=== PATIENT | female | born 1965 | race Caucasian/White ===

== ENCOUNTER → 2017-08-15 15:21 | Outpatient (CLI) | payer BC, SELFPAY ==
--- NOTE | 2017-08-15 15:29 | XR_ITS ---
EXAM: XR thoracic spine 3V HISTORY: ITS.REASON: BACK PAIN COMPARISON: None FINDINGS: Normal alignment. No fracture or dislocation. No lytic or blastic change. Minimal endplate osteophytes are present with mild degenerative disc disease in the midthoracic spine IMPRESSION: Mild degenerative change, no acute finding
--- NOTE | 2017-08-15 15:29 | XR_ITS ---
EXAM: XR lumbar spine min 4V HISTORY: Low back pain ORDERING PHYSICIAN: Emily Garrett PATIENT AGE: 52 years COMPARISON: None FINDINGS: Normal alignment. No fracture or dislocation. No lytic or blastic change. Facet arthritic changes with hypertrophy is present at L4-5 and L5-S1 IMPRESSION: Facet arthritic change L4-5 and L5-S1
== END ==
PROVIDERS: PCP Family Medicine; Visit Provider Nurse Practitioner Family
DX: M54.5 Low back pain (principal); M54.6 Pain in thoracic spine
CPT/HCPCS: 72072; 72110

== ENCOUNTER → 2017-10-21 10:56 | Outpatient (CLI) | payer BC, SELFPAY ==
[2017-10-21 12:45] LABS: Alanine Aminotransferase 24 U/L (12-78); Albumin Level 3.6 gm/dL (3.4-5.0); Albumin/Globulin Ratio 1.1 (1.1-1.8); Alkaline Phosphatase 73 U/L (46-116); Anion Gap 12.5 mEq/L (5-15); Aspartate Amino Transferase 15 U/L (15-37); Bilirubin,Total 0.2 mg/dL (0.2-1.0); Blood Urea Nitrogen 8 mg/dL (7-18); Carbon Dioxide 28 mmol/L (21.0-32.0); Chloride 105 mmol/L (98-107); Chol/HDL Ratio 4.4 (1-3.5); Cholesterol 153 mg/dL (140-200); Creatinine,Serum 0.68 mg/dL (0.55-1.02); Estimated Glomerular Filt Rate 92 ml/min (>60); Free T4 (Free Thyroxine) 0.97 ng/dl (0.76-1.46); GFR (African American) 111 ML/MIN (>60); Globulin 3.4 gm/dl (1.3-3.2); Glucose 101 mg/dL (74-106); HDL Cholesterol 35 mg/dL (29-89); LDL Cholesterol 108 mg/dL (0-130); Potassium 4.5 mmoL/L (3.5-5.1); Sodium 141 mmol/L (136-145); Thyroid Stimulating Hormone 3.34 uIU/ml (0.358-3.740); Triglycerides 48 mg/dL (30-200); VLDL Cholesterol 10 mg/dL (0-40)
[2017-10-23 12:13] LABS: Prolactin 11.5 ng/mL (4.8-23.3)
[2017-10-23 15:22] LABS: Thyroid Peroxidase Antibodies 33 IU/mL (0-34)
[2017-10-24 06:03] LABS: Estradiol 73.4 pg/mL (.); FSH 6.7 mIU/mL (.); Insulin Level Total 10.3 uIU/mL (2.6-24.9); LH 5.2 mIU/mL (.); Triiodothyronine (T3) Free 2.6 pg/mL (2.0-4.4); Vitamin D 25 Hydroxy 22.1 ng/mL (30.0-100.0)
[2017-10-24 06:04] LABS: Vitamin B12 306 pg/mL (232-1245)
== END ==
PROVIDERS: PCP Family Medicine; Visit Provider Internal Medicine Endocrinology, Diabetes & Metabolism
DX: E03.8 Other specified hypothyroidism (principal); R53.83 Other fatigue; E53.8 Deficiency of other specified B group vitamins; E55.9 Vitamin D deficiency, unspecified; E34.9 Endocrine disorder, unspecified
CPT/HCPCS: 36415; 80053; 80061; 82607; 82652; 82670; 83001; 83002; 83525; 84146; 84436; 84439; 84443; 84481; 86376

== ENCOUNTER → 2018-12-11 13:09 | Outpatient (CLI) | payer BC, SELFPAY ==
--- NOTE | 2018-12-11 13:15 | US_ITS ---
US transvaginal HISTORY: ITS.REASON: US T/V- Pelvic Pain ORDERING PHYSICIAN: Ranjit Guerra MD PATIENT AGE: 53 years Comparison: None FINDINGS: The uterus is 7.5 x 3.3 x 4.4 cm. Combined intra-atrial thickness is 4 mm. Anterior left aspect of the fundus there is a 1 similar area of decreased echogenicity consistent with a fibroid. Posteriorly within the fundus there is an additional 1.27 m area of slight heterogeneous echogenicity consistent with a fibroid. There is a septated 4 x 2 cm cyst involving the right ovary. The left ovary has an unremarkable appearance. No cul-de-sac fluid is evident. There is bilateral ovarian blood flow. IMPRESSION: 1. There are 2 small uterine fibroids. Previously noted fibroid in the region of the cervix is not demonstrated on today's exam. The patient is returning on 12/25/2018 for evaluation of the cervical region. An addendum can be given at that time regarding the cervix. 2. Complex 4 x 2 cm right ovarian cyst with some internal septations. Suggest follow-up to confirm resolution
== END ==
PROVIDERS: PCP Family Medicine; Visit Provider Nurse Practitioner Obstetrics & Gynecology
DX: R10.2 Pelvic and perineal pain (principal)
CPT/HCPCS: 76830

== ENCOUNTER → 2019-01-02 14:51 | Outpatient (CLI) | payer BC, SELFPAY ==
[2019-01-02 15:23] LABS: Basophils % 0.5 % (0.1-2.0); Eosinophils # 0.2 K/mm3 (0.0-0.4); Eosinophils % 3.2 % (0.1-12.0); Hematocrit 45.3 % (37.0-47.0); Hemoglobin 14.6 g/dL (12.2-16.2); Lymphocytes % 18.4 % (10-50); Mean Corpuscular HGB Conc 32.2 g/dL (31.8-35.4); Mean Corpuscular Hemoglobin 28.1 pg (27.0-31.2); Mean Corpuscular Volume 87.3 fl (81-99); Mean Platelet Volume 7.4 fl (7.4-10.4); Monocytes # 0.3 K/mm3 (0.1-1.0); Monocytes % 5.8 % (1.7-9.3); Neutrophils % 72.1 % (37.0-80.0); Platelet Count 340 K/mm3 (142-424); Red Blood Count 5.18 M/mm3 (4.20-5.40); Red Cell Distribution Width 13.1 % (11.5-17.5); White Blood Count 5.6 K/mm3 (4.8-10.8)
[2019-01-02 15:29] LABS: Blood Urea Nitrogen 10 mg/dL (7-18); Carbon Dioxide 28 mmol/L (21.0-32.0); Chloride 105 mmol/L (98-107); Creatinine,Serum 0.77 mg/dL (0.55-1.02); Estimated Glomerular Filt Rate 79 ml/min (>60); GFR (African American) 96 ML/MIN (>60); Glucose 107 mg/dL (74-106); Sodium 140 mmol/L (136-145); Troponin I < 0.02 ng/ml (0.00-0.06)
[2019-01-02 17:08] LABS: Alanine Aminotransferase 27 U/L (12-78); Albumin Level 4.2 gm/dL (3.4-5.0); Alkaline Phosphatase 77 U/L (46-116); Aspartate Amino Transferase 16 U/L (15-37); Bilirubin,Direct 0.1 mg/dL (0.0-0.2); Bilirubin,Indirect 0.2 mg/dL (0.0-0.9); Bilirubin,Total 0.3 mg/dL (0.2-1.0); Thyroid Stimulating Hormone 2.83 uIU/ml (0.358-3.740); Total Protein,Serum 7.6 gm/dL (6.4-8.2)
== END ==
PROVIDERS: Visit Provider Nurse Practitioner Family
DX: I20.8 Other forms of angina pectoris (principal); E03.9 Hypothyroidism, unspecified; E78.49 Other hyperlipidemia; I10 Essential (primary) hypertension; I25.118 Atherosclerotic heart disease of native coronary artery with other forms of angina pectoris; R00.2 Palpitations
CPT/HCPCS: 36415; 80048; 80076; 84439; 84443; 84484; 85025

== ENCOUNTER → 2019-01-16 07:27 | Outpatient (CLI) | payer BC, SELFPAY ==
--- NOTE | 2019-01-16 07:31 | NM_ITS ---
CARDIOLITE SPECT MYOCARDIAL PERFUSION EXCERCISE, REST AND STRESS: History: Hypertension, family history, chest pain and shortness of breath Procedure: Patient exercised on Ramírez protocol 6 minutes and 11 seconds, resting heart rate was 78 bpm resting blood pressure 136/81, with exercise maximum heart rate achieved was 1 54 bpm which is greater than 85% of the maximum predicted heart rate and a blood pressure was 2/86. Test was started due to shortness of breath patient denied complained of chest pain. Patient has adequate exercise capacity achieved 7mets of workload on treadmill, the blood pressure response to exercise was adequate. Electrocardiogram: Single electrocardiogram showed sinus rhythm with exercise there is less than 1.[address] segment depression noted from the baseline EKG. The EKG portion of the exercise Myoview is negative for ischemia. Cardiac stress and resting SPECT images: Cardiac stress and resting SPECT images were obtained using technetium 99 Myoview 31.9 mCi stress and 9.7 mCi at rest. Gated SPECT further analysis of segmental wall motion and calculation of the ejection fraction also done. Cardiac stress images show uniform myocardial activity. Computer derived ejection fraction is over 65% with no regional wall motion abnormality. Right ventricle is normal size and contractility. Conclusion: 1. The EKG portion of the exercise Myoview is negative for ischemia, patient has adequate exercise capacity achieved 7mets of workload on treadmill, the blood pressure response to exercise was adequate, there was no exercise-induced chest discomfort. 2. No scintigraphic evidence of reversible ischemia seen, computer derived ejection fraction is over 65% with no regional wall motion abnormality, right ventricle is normal size and contractility. 3. Normal exercise Myoview study.
--- NOTE | 2019-01-16 07:33 | CA_ITS ---
PROCEDURE: 2-D M-mode and color Doppler study INDICATIONS FOR THE TEST: Chest pain X COPD Heart Murmur Tobacco SmokingEX PalpitationsX Fatigue SyncopeX Edema HypertensionXDiabetes Mellitus Rheumatic Fever SOBXDOEXObesity Hyperlipidemia Family History HD Additional History CAD PATIENT INFORMATION HEIGHT: 65 WEIGHT:176 GENDER: Female B/P:157/100 2-D/M-MODE INTERPRETATION: 2-D MEASUREMENTS OBSERVED VALUES IN CMS Right Ventricular Dimension (RVDd) 2.3 Interventricular Septum (Thickness)(IVsd) .9 Left Ventricular Internal Dimensions(LVIDd) 4.4 Left Ventricular Posterior Wall (Thickness)(LVPWd) .9 Aortic Root 2.7 Aortic Cusp Separation 1.5 Left Atrial Dimensions (LAD) 3.0 2D 1. Left atrium is normal size, left ventricle is normal size, there is mild qualitative concentric left ventricular hypertrophy, visually estimated ejection fraction 55% with no regional wall motion abnormality. 2. The right atrium and right ventricle are mildly enlarged with normal contractility. 3. The aortic valve is minimally thickened and fibrosed. 4. The mitral and tricuspid valve are grossly normal. 5. The pulmonic valve is poorly visualized. 6. No significant pericardial effusion noted. DOPPLER INTERROGATION: Doppler interrogation of the aortic, mitral and tricuspid valvular presence of mild mitral and tricuspid regurgitation, calculated right ventricular systolic pressure is 36 mmHg, grade 1 diastolic dysfunction seen without tissue Doppler evidence of raised left atrial pressure. CONCLUSION: 1. Mild biatrial enlargement, normal left ventricular size, mild qualitative concentric left ventricular hypertrophy, visually estimated ejection fraction 55% with no regional wall motion abnormality, grade 1 diastolic dysfunction seen without tissue Doppler evidence of raised left atrial pressure. 2. Mildly enlarged right ventricle with normal contractility. 3. Mild mitral and tricuspid regurgitation, calculated right ventricular systolic pressure is 36 mmHg. 4. No significant pericardial effusion noted.
--- NOTE | 2019-01-16 08:26 | HMH.ITSHM ---
Current Home Medications as stated by this patient Lacey Wick or sales account representative. []LEVOTHYROXINE METOPROLOL AMLODIPINE NORTRIPTYLINE OMEPRAZOLE ASA
== END ==
PROVIDERS: PCP Family Medicine; Visit Provider Nurse Practitioner Family
DX: R07.9 Chest pain, unspecified (principal); R00.2 Palpitations; I25.118 Atherosclerotic heart disease of native coronary artery with other forms of angina pectoris; E03.9 Hypothyroidism, unspecified; E78.49 Other hyperlipidemia; I10 Essential (primary) hypertension
CPT/HCPCS: 78452; 93017; 93306; A9502

== ENCOUNTER → 2019-01-29 13:56 | Outpatient (CLI) | payer BC, SELFPAY ==
--- NOTE | 2019-01-29 14:01 | MM_ITS ---
MM Dig screening mamm BI w/CAD CAD Screening COMPARISON: Digital mammograms with CAD 02/01/2017 and 04/02/2014 INDICATION: There is no personal or family history of breast cancer. There has been a previous biopsy on each breast for benign disease. TECHNIQUE: Standard CC and MLO images were obtained. R2 CAD reviewed. FINDINGS: Prominent somewhat heterogenic fibroglandular densities are seen in both breasts and the findings are bilateral and symmetrical. There is a biopsy clip upper central portion of each breast. There is no suspicious lesion and there are no suspicious microcalcifications. There is a mole marker right breast. IMPRESSION: Moderately dense parenchymal pattern with no suspicious lesion seen BI-RADS Category: 2 Benign Finding(s) RECOMMENDED FOLLOW-UP: 1YR - 1 YEAR FOLLOW-UP (A letter has been sent to the patient regarding results of the study.)
== END ==
PROVIDERS: PCP Family Medicine; Visit Provider Nurse Practitioner Obstetrics & Gynecology
DX: Z12.31 Encounter for screening mammogram for malignant neoplasm of breast (principal)
CPT/HCPCS: 77067

== ENCOUNTER → 2019-06-06 17:43 | Outpatient (CLI) | payer BC, SELFPAY ==
--- NOTE | 2019-06-06 17:46 | XR_ITS ---
PROCEDURE: XR MULTIPLE SPINE 6+V cervical thoracic and lumbar spine CLINICAL INDICATION: BACK AND NECK PAIN For several years COMPARISON: CS5 CERVICAL SPINE 4 OR 5 VIEWS from 02/01/2017 FINDINGS: There is straightening of the normal curvature similar to the previous study January 2017. A swimmer's view was obtained showing good visualization of the cervical thoracic junction. C1 through C7 appear intact. There is mild disc space narrowing at C4-5 C5-6 levels with mild anterior osteophytic spurring at these levels unchanged from the previous study oblique film show no significant neural foraminal compromise on either side. The prevertebral soft tissues are normal and the odontoid is normal. 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 The prevertebral soft tissues are normal and the joints normal. Thoracic spine: There is normal curvature and alignment. All thoracic vertebrae appear intact. Minor degenerate changes are seen lower thoracic spine. There is no paraspinal mass. Lumbar spine: There is normal curvature and alignment. There is a transitional vertebrae at the lumbosacral junction with unilateral pseudoarthrosis on the left side. All lumbar vertebrae appear intact and disc spaces are well maintained throughout. There are mild hypertrophic facet changes at the L4-5 and L5-S1 levels. There is no pars defect. There minor sclerosis of the SI joints bilaterally. IMPRESSION: Possible mild muscle spasm, stable minor degenerate disc disease C4-5 and C5-6. 1. Minor degenerative changes lower thoracic spine 2. 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 José Luis Mckeon MD 06/07/2019 07:[address] José Luis Mckeon MD in [place] 06/07/2019 07:38
== END ==
PROVIDERS: PCP Nurse Practitioner Family; Visit Provider Nurse Practitioner Family
DX: M54.2 Cervicalgia (principal); M54.9 Dorsalgia, unspecified
CPT/HCPCS: 72084

== ENCOUNTER → 2019-08-09 14:14 | Outpatient (CLI) | payer BC, SELFPAY ==
--- NOTE | 2019-08-09 14:19 | MR_ITS ---
PROCEDURE: MR LUMBAR SPINE WO CON CLINICAL INDICATION: LOW BACK PAIN Low back pain, bilateral leg weakness and pain COMPARISON: [id number] XR lumbar spine min 4V from 08/15/2017 [id number] XR thoracic spine 3V from 08/15/2017 TECHNIQUE: Standard multiplanar multiecho sequences are performed without contrast. 3-D MIP and myelographic images are also rendered and reviewed FINDINGS: There is normal alignment. The spinal cord ends at the L1-L2 level. L1-L2: Unremarkable. L2-L3: Unremarkable. L3-L4: Unremarkable. L4-5: There is mild bulging disc at L4 at L5 with mild facet and ligamentum hypertrophy. L5-S1: Mild degenerative disc disease. There is a transitional segment at L5-S1 which is labeled as L5. Review of previous lumbar spine radiograph shows hypoplastic ribs at T12 IMPRESSION: Mild degenerative changes at L4-5 and L5-S1. No canal stenosis or disc herniation or other significant anomaly. Mild facet arthritic changes are present at L4-5 Dictated by: Mike Kathleen MD 08/12/2019 07:13 Electronically signed by Mike Kathleen MD in [place] 08/12/2019 07:13
== END ==
PROVIDERS: PCP Nurse Practitioner Family; Visit Provider Neurological Surgery
DX: M54.5 Low back pain (principal)
CPT/HCPCS: 72148; 76376

== ENCOUNTER → 2020-05-01 10:45 | Outpatient (CLI) | payer BC, SELFPAY ==
--- NOTE | 2020-05-01 11:00 | MM_ITS ---
PROCEDURE: MM DIG SCREENING MAMM BI W/CAD Digital Breast Tomosynthesis Included CLINICAL INDICATION: SCREENING There is no personal or family history of breast cancer. There has been a previous biopsy on each breast for benign disease. COMPARISON: MG DIG MAMM-SCREEN ERIKA from 01/29/2019 US US BREAST RT COMPLETE from 05/05/2020 TECHNIQUE: Standard CC and MLO images and 3D Tomosynthesis was obtained. R2 CAD reviewed. FINDINGS: Moderate scattered fibroglandular densities are seen in both breasts. However there is a new suspicious mass lower right breast 6 o'clock position. Additional spot compression views were obtained showing somewhat irregular shaggy appearing velazquez to the lesion. Robbie images particularly on the CC projection confirm mild spiculation of the border of this mass. The mass measures 2.2 by 2.0 by 1.3 cm. Ultrasound performed on 05/05/2020 shows a markedly suspicious hypoechoic lesion with posterior acoustic shadowing, the lesion is taller than wide with lobulated borders. Even in retrospect this lesion was not seen on the most recent mammogram 01/29/2019. IMPRESSION: Markedly is suspicious mass right breast BI-RAD Category: 5 Highly Suggestive Of Malignancy FOLLOW-UP: BIO Biopsy Recommended (A letter has been sent to the patient regarding results of the study.) Dictated by: Dr. José Luis Mckeon MD 05/05/2020 15:28 Dr. José Luis Mckeon MD in [place] 05/05/2020 15:28
[2020-05-01 11:32] LABS: Chloride 105 mmol/L (98-107); Potassium 4.2 mmoL/L (3.5-5.1); Sodium 141 mmol/L (136-145)
[2020-05-01 11:35] LABS: Alanine Aminotransferase 14 U/L (12-78); Albumin Level 4.4 g/dl (3.5-5.0); Albumin/Globulin Ratio 1.6 (1.1-1.8); Alkaline Phosphatase 50 U/L (38-126); Anion Gap 12.2 mEq/L (5-15); Aspartate Amino Transferase 19 U/L (14-36); Bilirubin,Total 0.3 mg/dl (0.2-1.3); Blood Urea Nitrogen 14 mg/dl (7-17); Calcium 9.5 mg/dl (8.4-10.2); Carbon Dioxide 28 mmol/L (22.0-30.0); Cholesterol 149 mg/dl (140-200); Estimated Glomerular Filt Rate 75 ml/min (>60); GFR (African American) 91 ML/MIN (>60); Globulin 2.7 g/dL (1.3-3.2); Glucose 103 mg/dl (74-100); Total Protein,Serum 7.1 g/dl (6.3-8.2); Triglycerides 66 mg/dl (30-150); VLDL Cholesterol 13 mg/dL (0-40)
[2020-05-01 11:36] LABS: Chol/HDL Ratio 3.9 (1-3.5); HDL Cholesterol 38 mg/dl (40-60)
[2020-05-01 11:47] LABS: Direct LDL Cholesterol 97.97 mg/dL (100-129)
== END ==
PROVIDERS: Visit Provider Nurse Practitioner Family
DX: I10 Essential (primary) hypertension (principal); Z12.31 Encounter for screening mammogram for malignant neoplasm of breast; Z13.220 Encounter for screening for lipoid disorders
CPT/HCPCS: 36415; 77063; 77067; 80053; 80061

== ENCOUNTER → 2020-05-05 14:25 | Outpatient (CLI) | payer BC, SELFPAY ==
--- NOTE | 2020-05-05 14:42 | US_ITS ---
PROCEDURE: US BREAST RT COMPLETE CLINICAL INDICATION: ABN MAMM RT BREAST COMPARISON: US BB US BREAST-ERIKA from 03/12/2014 FINDINGS: There is a hypoechoic mass at the 6 o'clock position near the nipple with moderate acoustic shadowing, taller than wide and lobulation of the border and this must be considered carcinoma until proven otherwise. There are couple normal appearing nodes in the axilla. There is a tiny benign-appearing cystic lesion at the 3 o'clock position near the nipple measuring measuring 0.4 x 0.2 x 0.3 cm.. IMPRESSION: Markedly suspicious hypoechoic mass 6 o'clock position near the nipple and biopsy is recommended Dictated by: Dr. José Luis Mckeon MD 05/05/2020 15:33 Dr. José Luis Mckeon MD in [place] 05/05/2020 15:33
== END ==
PROVIDERS: PCP Family Medicine; Visit Provider Nurse Practitioner Family
DX: R92.8 Other abnormal and inconclusive findings on diagnostic imaging of breast (principal)
CPT/HCPCS: 76641

== ENCOUNTER → 2020-05-19 09:42 | Outpatient (CLI) | payer BC, SELFPAY ==
--- NOTE | 2020-05-19 | MM_ITS ---
PROCEDURE: US MAMMOTOME BX RT CLINICAL INDICATION: ABN MAMM Follow-up abnormal mammogram and ultrasound COMPARISON: MG MM DIG SCREENING MAMM BI W/CAD from 05/01/2020 US US BREAST RT COMPLETE from 05/05/2020 MG MM CLIP PLACEMENT RT from 05/19/2020 FINDINGS: Pre biopsy ultrasound once again demonstrated a suspicious mass at the 6 o'clock region of the right breast. Following obtaining informed consent and time-out procedure under aseptic conditions and local anesthesia with 1 percent buffered lidocaine and deeper anesthesia with lidocaine mixed with epinephrine, mammography needle was inserted and multiple mammotome biopsies were obtained. The patient tolerated the procedure well without evidence of immediate complication. Post biopsy mammogram: Clip placement images are obtained demonstrating post biopsy changes within the 6 o'clock region of the right breast corresponding to the area of concern on the previous mammogram the clip is present in the area of concern. Pathology: Invasive ductal carcinoma, ER NC positive and HER2 Gerhard negative with associated high-grade DCIS with comedo necrosis IMPRESSION: Uneventful ultrasound-guided mammotome biopsy of the right breast demonstrated invasive ductal carcinoma. Surgical consult suggested. Dictated by: Mike Kathleen MD 06/08/2020 09:14 Mike Kathleen MD in [place] 06/08/2020 09:14
--- NOTE | 2020-05-19 09:45 | US_ITS ---
PROCEDURE: US MAMMOTOME BX RT CLINICAL INDICATION: ABN MAMM Follow-up abnormal mammogram and ultrasound COMPARISON: MG MM DIG SCREENING MAMM BI W/CAD from 05/01/2020 US US BREAST RT COMPLETE from 05/05/2020 MG MM CLIP PLACEMENT RT from 05/19/2020 FINDINGS: Pre biopsy ultrasound once again demonstrated a suspicious mass at the 6 o'clock region of the right breast. Following obtaining informed consent and time-out procedure under aseptic conditions and local anesthesia with 1 percent buffered lidocaine and deeper anesthesia with lidocaine mixed with epinephrine, mammography needle was inserted and multiple mammotome biopsies were obtained. The patient tolerated the procedure well without evidence of immediate complication. Post biopsy mammogram: Clip placement images are obtained demonstrating post biopsy changes within the 6 o'clock region of the right breast corresponding to the area of concern on the previous mammogram the clip is present in the area of concern. Pathology: Invasive ductal carcinoma, ER NV positive and HER2 Gerhard negative with associated high-grade DCIS with comedo necrosis IMPRESSION: Uneventful ultrasound-guided mammotome biopsy of the right breast demonstrated invasive ductal carcinoma. Surgical consult suggested. Dictated by: Mike Kathleen MD 06/08/2020 09:14 Mike Kathleen MD in [place] 06/08/2020 09:14
== END ==
PROVIDERS: PCP Family Medicine; Visit Provider Nurse Practitioner Family
DX: R92.8 Other abnormal and inconclusive findings on diagnostic imaging of breast (principal)
CPT/HCPCS: 19083; 77065; C2618

== ENCOUNTER → 2021-07-15 10:14 | Outpatient (CLI) | payer BC, SELFPAY | PROVIDERS: PCP Family Medicine; Visit Provider Nurse Practitioner | DX: U07.1 COVID-19 (principal) | CPT/HCPCS: C9803; U0003; U0005 ==

== ENCOUNTER → 2022-01-05 15:25 | Outpatient (CLI) | payer BC, SELFPAY | PROVIDERS: PCP Family Medicine; Visit Provider Nurse Practitioner | DX: R06.09 Other forms of dyspnea (principal); R42 Dizziness and giddiness; R55 Syncope and collapse; I27.20 Pulmonary hypertension, unspecified; E78.2 Mixed hyperlipidemia; R53.83 Other fatigue; R60.0 Localized edema | CPT/HCPCS: 93270 ==

== ENCOUNTER → 2022-01-14 15:02 | Outpatient (CLI) | payer BC, SELFPAY ==
--- NOTE | 2022-01-14 15:05 | CA_ITS ---
APPROVED REPORT EXAM: Comprehensive 2D, Doppler, and color-flow Echocardiogram Representative: Jaida Sofia CRT Ht: 5 ft 5 in Wt: 182lbs BSA: 1.90 BP: 144/88 mmHg Indications: hx of breast ca, post chemo, sob, fatigue, near syncope 2D Dimensions Aortic Root 1.93 cm LA Volume 33.20 mL LA Volume Index 17.50 mL/m2 (M/F) 16-34 M-Mode Dimensions RVDd 2.40 cm (0.9-2.6) LA Diam 3.59 cm (1.9-4.0) LVDd 3.97 cm (3.5-5.7) Ao Diam 3.93 cm (2.0-3.7) LVDs 2.47 cm (3.5-5.7) IVSd 1.29 cm (0.6-1.1) PWd 0.54 cm (0.6-1.1) EF (Teich) 68.50% FS 37.80% EDV (Teich) 68.80 mL TAPSE 2.06 (<1.7) ESV (Teich) 21.70 mL LV Diastology E Decel Time 207.00 (160-240 msec) E/A Ratio 0.70 MED E' 7.60 (< 7 cm/sec) MED A' 12.50 cm/s E'/MED E' Ratio 10.11 (>14) LAT E' 9.10 (<10 cm/sec) LAT A' 16.20 cm/s E/LAT E' Ratio 8.44 (>14) Aortic Valve AO Peak GR. 11.30 mmHg Mitral Valve MV E Max Andres. 77.00 (40-130 cm/s) MV A Velocity 109.00 (40-130 cm/s) E/A Ratio 0.70 MV Decel. Time 207.00 (160-240 ms) MV PHT 61.00 ms Pulmonary Valve PV Peak Velocity 156.00 (50-150 cm/s) Tricuspid Valve TR P. Velocity 200.00 cm/s RAP Estimate 10.00 mmHg RVSP 25.90 mmHg Left Ventricle Left atrium is mildly enlarged, left ventricle is normal size mild concentric left ventricular hypertrophy, estimated ejection fraction 55% with no regional wall motion abnormality, grade 1 diastolic dysfunction seen without tissue Doppler evidence of raise left atrial pressure. Right Ventricle Right atrium and right ventricle are normal size and contractility. Aortic Valve Aortic valve is thickened and calcified without aortic stenosis or aortic insufficiency. Mitral Valve Mitral valve grossly normal, there is trace mitral regurgitation. Tricuspid Valve Tricuspid valve grossly normal, there is trace tricuspid regurgitation, tricuspid regurgitation jet velocity is inadequate for calculation of the right ventricular systolic pressure. Pulmonic Valve Pulmonic valve is poorly visualized. Great Vessels Aortic root is normal size. Inferior vena cava normal size normal inspiratory collapse. Pericardium No significant pericardial effusion noted. Conclusion 1. Mildly enlarged left atrium, normal left ventricular size, mild concentric left ventricular hypertrophy, estimated ejection fraction 55% with no regional wall motion abnormality, grade 1 diastolic dysfunction seen without tissue Doppler evidence of raise left atrial pressure. 3. Trace mitral and tricuspid regurgitation. 3. No significant pericardial effusion. 4. Inferior vena cava is normal size and normal inspiratory collapse. Electronically signed by : Eren No MD 01/17/2022 11:57:42
== END ==
PROVIDERS: PCP Family Medicine; Visit Provider Nurse Practitioner
DX: R06.09 Other forms of dyspnea (principal); R42 Dizziness and giddiness; R55 Syncope and collapse; I27.20 Pulmonary hypertension, unspecified; E78.2 Mixed hyperlipidemia; R53.83 Other fatigue; R60.0 Localized edema
CPT/HCPCS: 93306

== ENCOUNTER → 2022-06-03 07:02 | Outpatient (CLI) | payer BC, SELFPAY ==
[2022-06-03 08:06] LABS: Basophils % 0.8 % (0.1-2.0); Eosinophils # 0.3 K/mm3 (0.0-0.4); Eosinophils % 6.1 % (0.1-12.0); Hematocrit 41.4 % (37.0-47.0); Hemoglobin 13.5 g/dL (12.2-16.2); Lymphocytes # 0.9 K/mm3 (0.7-4.5); Lymphocytes % 16.9 % (10-50); Mean Corpuscular HGB Conc 32.5 g/dL (31.8-35.4); Mean Corpuscular Hemoglobin 28.5 pg (27.0-31.2); Mean Corpuscular Volume 87.6 fl (81-99); Mean Platelet Volume 7.9 fl (7.4-10.4); Monocytes # 0.5 K/mm3 (0.1-1.0); Neutrophils # 3.8 K/mm3 (1.8-7.8); Neutrophils % 68.1 % (37.0-80.0); Platelet Count 319 K/mm3 (142-424); Red Blood Count 4.72 M/mm3 (4.20-5.40); Red Cell Distribution Width 13.6 % (11.5-17.5); White Blood Count 5.6 K/mm3 (4.8-10.8)
[2022-06-03 08:26] LABS: Hemoglobin A1C 5.8 % (4.0-6.0)
[2022-06-03 08:43] LABS: Alanine Aminotransferase 20 U/L (12-78); Albumin Level 4.4 g/dl (3.5-5.0); Albumin/Globulin Ratio 1.9 (1.1-1.8); Alkaline Phosphatase 78 U/L (38-126); Anion Gap 10.5 mEq/L (5-15); Aspartate Amino Transferase 23 U/L (14-36); Bilirubin,Total 0.4 mg/dl (0.2-1.3); Blood Urea Nitrogen 18 mg/dl (7-17); Calcium 9.9 mg/dl (8.4-10.2); Carbon Dioxide 32 mmol/L (22.0-30.0); Chloride 102 mmol/L (98-107); Chol/HDL Ratio 4.3 (1-3.5); Cholesterol 141 mg/dl (140-200); Estimated Glomerular Filt Rate 74 ml/min (>60); GFR (African American) 90 ML/MIN (>60); Globulin 2.3 g/dL (1.3-3.2); Glucose 108 mg/dl (74-100); HDL Cholesterol 33 mg/dl (40-60); Potassium 4.5 mmoL/L (3.5-5.1); Sodium 140 mmol/L (136-145); Total Protein,Serum 6.7 g/dl (6.3-8.2); Triglycerides 86 mg/dl (30-150); VLDL Cholesterol 17 mg/dL (0-40)
[2022-06-03 08:54] LABS: Direct LDL Cholesterol 87.85 mg/dL (100-129)
== END ==
PROVIDERS: PCP Family Medicine; Visit Provider Nurse Practitioner Obstetrics & Gynecology
DX: Z01.419 Encounter for gynecological examination (general) (routine) without abnormal findings (principal)
CPT/HCPCS: 36415; 80053; 80061; 83036; 85025

== ENCOUNTER 2023-10-16 09:03 | Outpatient (POV) | payer BC, SELFPAY ==
[2023-10-16 09:09] VITALS: BP 142/89; PULSE 90; RESP 18; TEMP 36.7; O2SAT 99; BMI 20.7
--- NOTE | 2023-10-16 10:11 | A.OFFVIS_ITS ---
HPI Data of Consult Patient: new to practice Consult date: 10/16/23 Requesting Physician: Inocencia Melendez APRN Primary Care Provider: Arthur Garcia APRN Consult Narrative Reason for consult: Acute shingles outbreak, mid back pain, left arm pain, left breast pain History of present illness: Ms. Wick is a 58 year old female who presents today as a new patient. She is a referral from Arthur from his office. Today she rates her pain a 7 out of 10. Patient states her pain is all around her mid back with radiating symptoms down under her left arm and into her left breast as well as going down the backside of her left arm. Patient states that this started initially 3 weeks ago however that the rash did not appear until 2 weeks ago. Patient states she did go to her primary care who did prescribe her steroids with a 5-day dose and acyclovir and gabapentin 100 mg at bedtime. Patient states that she has finished up the steroids and that it did significantly help. Patient states that the rash is drying up however she still continues to have tenderness and pain around the rash site. She states that it will be irritated and swell some. Patient states that she has only been on the gabapentin for the last 4 days and it was written for after 7 days she is to start taking it twice a day. Patient does state the pain interferes with her ability perform activities of daily living such as cooking and cleaning. Patient is interested in any help we may be able to provide. Her Khari has been reviewed. CC: Inocencia Melendez APRN [facility] Disclaimer: The information contained in this section may have been updated after the patient was seen, as this information can be updated by other users. 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 paroxysmal positional vertigo Vertigo Abnormal EKG Diastolic dysfunction Pulmonary HTN Typical angina Dizziness Near syncope Weight gain Hypothyroid Palpitations Chest pain Surgical History Ectopic of ovary History of lumpectomy of right breast History of cholecystectomy Family History Other No significant family history Social History Smoking Status: Former smoker alcohol intake: never substance use type: denies use current occupational status: employed Travel in the last 8 weeks: None household members: spouse housing: house caffeine: Yes Review of Systems Review of Systems Review of systems:: pertinent systems reviewed and negative unless documented below Review of systems (narrative): Review of Systems: General: No recent weight changes, no fever, no sleep disturbances Respiratory: No cough, no shortness of air, no recurring pulmonary infections Cardiovascular/peripheral vascular: No chest pain, no palpitations, no edema, no shortness of breath Gastrointestinal: No new onset incontinence, normal bowel movements reported Genitourinary: No new onset incontinence Musculoskeletal: Mid back pain, left arm pain, left axilla pain, left breast pain Psychiatric: [Normal mood/affect] Neurological: [Denies weakness in extremities], [denies balance issues] Meds Home Medications and Allergies Home Medications Medication Instructions Recorded Confirmed Type omeprazole 40 mg capsule,delayed 40 mg PO DAILY #90 caps 07/16/18 08/02/23 Rx release anastrozole 1 mg tablet 1 mg PO DAILY 03/15/21 08/02/23 History levothyroxine 125 mcg tablet 125 mcg PO DAILY 03/15/21 08/02/23 History multivitamin 1 tab PO DAILY 03/15/21 08/02/23 History aspirin 81 mg capsule 81 mg PO DAILY 01/05/22 08/02/23 History cyanocobalamin (vitamin B-12) 50 50 mcg PO DAILY 01/05/22 08/02/23 History mcg tablet escitalopram oxalate 10 mg tablet 10 mg PO DAILY 01/05/22 08/02/23 History gentamicin 0.1 % topical ointment 0.1 applic topical DAILY 08/02/23 08/02/23 History gabapentin 100 mg capsule 100 mg PO BID 10/16/23 History New Prescriptions to Start Prescriptions: Allergies Allergy/AdvReac Type Severity Reaction Status Date / Time No Known Allergies Allergy Verified 08/02/23 10:11 Objective Vital signs: Temp Pulse Resp BP Pulse Ox O2 Del Method 98.0 F 90 18 142/89 H 99 Room Air 10/16/23 09:09 10/16/23 09:09 10/16/23 09:09 10/16/23 09:09 10/16/23 09:10/16/23 09:09 Narrative: Physical Exam: General: Alert and oriented x3, no acute distress, pleasant and cooperative Lungs: Respirations even and unlabored, symmetrical chest expansion Eyes: PERRL Musculoskeletal: Flexion and extension of thoracic [spine] somewhat guarded secondary to pain, [antalgic gait noted] Neurological: Speech clear, no gross sensory deficit Skin: Diffuse rash noted from the left side of her thoracic spine radiating down under her left axilla into her left breast Assessment and Plan *Assessment and plan (1) Herpes zoster: Status: Acute Qualifiers: Herpes zoster complications: unspecified herpes zoster complication Qualified Code(s): B02.8 - Zoster with other complications Category: Medical Code(s): B02.9 - Zoster without complications (2) Mid back pain: Status: Acute Category: Medical Code(s): M54.9 - Dorsalgia, unspecified (3) Left arm pain: Status: Acute Category: Medical Code(s): M79.602 - Pain in left arm (4) Breast pain, left: Status: Acute Category: Medical Code(s): N64.4 - Mastodynia (5) Left axillary pain: Status: Acute Category: Medical Code(s): M79.622 - Pain in left upper arm Plan Patient does have an acute shingles outbreak that is present from her thoracic spine radiating under her left axilla and into her left upper abdomen/breast area. I have discussed with the patient that she may benefit from thoracic epidural steroid injection. Risk and benefits were discussed with the patient and she would like to proceed forward with this plan of care. Patient is not on any blood thinners. I have also discussed with the patient that in future she may also benefit from trigger point injections. We will follow-up with this at future visits. I will order the patient a compounded cream and prescribed prednisone 20 mg twice a day for 5 days. Patient agrees with this plan of care. Patient will be scheduled for a thoracic epidural steroid injection T8-T9 under fluoroscopy. Due to the significant pain she is experiencing with this shingles outbreak we will send her to the [facility] to get in sooner. This office will reach out to the patient for scheduling. Patient has been instructed to contact the clinic with any concerns before the next appointment. Dr. Jackson has reviewed this note and agrees with this plan of care. This note was dictated using voice recognition software and make contain errors or omissions.
== END 2023-10-16 23:59 | disposition home or self-care (01) ==
PROVIDERS: PCP Nurse Practitioner Family; Visit Provider Nurse Practitioner Family
DX: B02.8 Zoster with other complications (principal); M54.6 Pain in thoracic spine; M79.602 Pain in left arm; N64.4 Mastodynia; M79.622 Pain in left upper arm
CPT/HCPCS: 99202; G0463